=== PATIENT | female | born 1935 ===

== ENCOUNTER 2022-01-24 16:03 | Inpatient (IN) ==
[2022-01-24] MEDS ORDERED: Acetaminophen 325 MG TABLET PO PRN (17:09)
[2022-01-24] MEDS ORDERED: Ondansetron ODT 4 MG TAB.RAPDIS SL PRN (17:09)
[2022-01-24] MEDS ORDERED: QUEtiapine Fumarate 25 MG TABLET PO SCH (23:45)
[2022-01-25 08:45] LABS: Basophils % 0.6 %; Eosinophils # 0.2 K/mcL (0.0-0.6); Eosinophils % 3.3 %; Hematocrit 27.4 % (35.3-44.9); Immature Granulocytes % 2.6 % (0-4); Lymphocytes # 1.5 K/mcL (0.6-4.6); Lymphocytes % 20.6 %; Mean Corpuscular HGB Conc 32.8 g/dL (31.6-35.5); Mean Corpuscular Hemoglobin 28.7 pg (28.0-33.3); Mean Corpuscular Volume 87.3 fL (83.0-100.0); Mean Platelet Volume 9.1 fL (9.4-12.4); Monocytes # 0.9 K/mcL (0.0-1.3); Monocytes % 11.9 %; Neutrophils # 4.4 K/mcL (1.6-8.9); Platelet Count 346 K/mcL (140-400); Red Blood Count 3.14 M/mcL (3.82-4.97); Red Cell Distribution Width 14.6 % (11.5-14.5); White Blood Count 7.2 K/mcL (4.3-11.1)
[2022-01-25 09:00] LABS: BUN/Creatinine Ratio 33 (6-26); Blood Urea Nitrogen 14 mg/dL (8-23); Calcium 8.4 mg/dL (8.6-10.3); Carbon Dioxide 28 mEq/L (23-29); Chloride 99 mEq/L (98-107); Glucose 100 mg/dL (70-105); Osmolality,Calculated 275 (280-300); Potassium 4.3 mEq/L (3.5-5.1); Sodium 132 mEq/L (136-145); eGFR For African Americans > 60 (> 60); eGFR For Non-African Americans > 60 (> 60)
[2022-01-25] MEDS: Aspirin Enteric Coated 81 MG Tablet PO SCH ×2 (12:03→20:13)
[2022-01-25] MEDS: Metoprolol XL (24 HR) Succ 25 MG TAB.ER.24H PO SCH (12:03)
[2022-01-25] MEDS: Multivit/Ca/Min/Fe/FA 1 TAB TABLET PO SCH (12:03)
[2022-01-25] MEDS: Ascorbic Acid 500 MG TABLET PO SCH ×2 (12:04→17:11)
[2022-01-25] MEDS: Levothyroxine 25 MCG TABLET PO SCH (12:05)
[2022-01-25] MEDS: QUEtiapine Fumarate 25 MG TABLET PO SCH (20:13)
[2022-01-26] MEDS: Levothyroxine 25 MCG TABLET PO SCH (05:23)
[2022-01-26] MEDS: Ascorbic Acid 500 MG TABLET PO SCH ×2 (10:40→16:38)
[2022-01-26] MEDS: Aspirin Enteric Coated 81 MG Tablet PO SCH ×2 (10:40→21:04)
[2022-01-26] MEDS: Multivit/Ca/Min/Fe/FA 1 TAB TABLET PO SCH (10:41)
[2022-01-26] MEDS: Metoprolol XL (24 HR) Succ 25 MG TAB.ER.24H PO SCH (10:41)
[2022-01-26] MEDS: QUEtiapine Fumarate 25 MG TABLET PO SCH (21:04)
[2022-01-26] MEDS: *HR* HYDROcodone/Acet 5/325 mg TABLET PO PRN (21:23)
[2022-01-27] MEDS: Levothyroxine 25 MCG TABLET PO SCH (05:47)
[2022-01-27] MEDS: Ascorbic Acid 500 MG TABLET PO SCH ×2 (10:47→17:59)
[2022-01-27] MEDS: Multivit/Ca/Min/Fe/FA 1 TAB TABLET PO SCH (10:47)
[2022-01-27] MEDS: Metoprolol XL (24 HR) Succ 25 MG TAB.ER.24H PO SCH (10:47)
[2022-01-27] MEDS: Aspirin Enteric Coated 81 MG Tablet PO SCH ×2 (10:47→19:46)
[2022-01-27] MEDS: *HR* HYDROcodone/Acet 5/325 mg TABLET PO PRN (19:38)
[2022-01-27] MEDS: QUEtiapine Fumarate 25 MG TABLET PO SCH (19:47)
[2022-01-28] MEDS: Levothyroxine 25 MCG TABLET PO SCH (06:21)
[2022-01-28] MEDS: Metoprolol XL (24 HR) Succ 25 MG TAB.ER.24H PO SCH (09:38)
[2022-01-28] MEDS: Ascorbic Acid 500 MG TABLET PO SCH ×2 (09:38→16:24)
[2022-01-28] MEDS: Multivit/Ca/Min/Fe/FA 1 TAB TABLET PO SCH (09:38)
[2022-01-28] MEDS: Aspirin Enteric Coated 81 MG Tablet PO SCH ×2 (09:38→21:08)
[2022-01-28] MEDS: QUEtiapine Fumarate 25 MG TABLET PO SCH (21:08)
[2022-01-29] MEDS: Levothyroxine 25 MCG TABLET PO SCH (05:38)
[2022-01-29] MEDS: Ascorbic Acid 500 MG TABLET PO SCH ×2 (10:09→16:17)
[2022-01-29] MEDS: Aspirin Enteric Coated 81 MG Tablet PO SCH ×2 (10:09→20:33)
[2022-01-29] MEDS: Multivit/Ca/Min/Fe/FA 1 TAB TABLET PO SCH (10:09)
[2022-01-29] MEDS: Metoprolol XL (24 HR) Succ 25 MG TAB.ER.24H PO SCH (10:09)
[2022-01-29] MEDS: QUEtiapine Fumarate 25 MG TABLET PO SCH (20:33)
[2022-01-30] MEDS: Levothyroxine 25 MCG TABLET PO SCH (05:39)
[2022-01-30] MEDS: Multivit/Ca/Min/Fe/FA 1 TAB TABLET PO SCH (08:08)
[2022-01-30] MEDS: Metoprolol XL (24 HR) Succ 25 MG TAB.ER.24H PO SCH (08:08)
[2022-01-30] MEDS: Ascorbic Acid 500 MG TABLET PO SCH ×2 (08:08→15:14)
[2022-01-30] MEDS: Aspirin Enteric Coated 81 MG Tablet PO SCH ×2 (08:13→20:38)
[2022-01-30] MEDS: *HR* HYDROcodone/Acet 5/325 mg TABLET PO PRN (15:14)
[2022-01-30] MEDS: QUEtiapine Fumarate 25 MG TABLET PO SCH (20:39)
[2022-01-31] MEDS: *HR* HYDROcodone/Acet 5/325 mg TABLET PO PRN (01:24)
[2022-01-31] MEDS: Levothyroxine 25 MCG TABLET PO SCH (05:27)
[2022-01-31] MEDS: Ascorbic Acid 500 MG TABLET PO SCH ×2 (09:05→18:48)
[2022-01-31] MEDS: Aspirin Enteric Coated 81 MG Tablet PO SCH ×2 (09:05→21:10)
[2022-01-31] MEDS: Metoprolol XL (24 HR) Succ 25 MG TAB.ER.24H PO SCH (09:05)
[2022-01-31] MEDS: Multivit/Ca/Min/Fe/FA 1 TAB TABLET PO SCH (09:05)
[2022-01-31] MEDS: QUEtiapine Fumarate 25 MG TABLET PO SCH (21:11)
[2022-02-01] MEDS: *HR* HYDROcodone/Acet 5/325 mg TABLET PO PRN (03:23)
[2022-02-01] MEDS: Levothyroxine 25 MCG TABLET PO SCH (06:53)
[2022-02-01] MEDS: Metoprolol XL (24 HR) Succ 25 MG TAB.ER.24H PO SCH (08:56)
[2022-02-01] MEDS: Aspirin Enteric Coated 81 MG Tablet PO SCH ×2 (08:57→20:03)
[2022-02-01] MEDS: Ascorbic Acid 500 MG TABLET PO SCH ×2 (08:57→16:46)
[2022-02-01] MEDS: Multivit/Ca/Min/Fe/FA 1 TAB TABLET PO SCH (08:57)
[2022-02-01] MEDS: QUEtiapine Fumarate 25 MG TABLET PO SCH (20:04)
[2022-02-02] MEDS: Levothyroxine 25 MCG TABLET PO SCH (06:11)
[2022-02-02 07:30] LABS: Hematocrit 28.2 % (35.3-44.9); Hemoglobin 9.1 g/dL (11.5-15.4); Mean Corpuscular HGB Conc 32.3 g/dL (31.6-35.5); Mean Corpuscular Hemoglobin 28.8 pg (28.0-33.3); Mean Corpuscular Volume 89.2 fL (83.0-100.0); Mean Platelet Volume 8.7 fL (9.4-12.4); Platelet Count 310 K/mcL (140-400); Red Blood Count 3.16 M/mcL (3.82-4.97); Red Cell Distribution Width 14.2 % (11.5-14.5); White Blood Count 5.3 K/mcL (4.3-11.1)
[2022-02-02] MEDS: Aspirin Enteric Coated 81 MG Tablet PO SCH ×2 (08:57→21:10)
[2022-02-02] MEDS: Metoprolol XL (24 HR) Succ 25 MG TAB.ER.24H PO SCH (08:57)
[2022-02-02] MEDS: Multivit/Ca/Min/Fe/FA 1 TAB TABLET PO SCH (08:58)
[2022-02-02] MEDS: Ascorbic Acid 500 MG TABLET PO SCH ×2 (08:58→16:30)
[2022-02-02 11:39] LABS: BUN/Creatinine Ratio 13 (6-26); Blood Urea Nitrogen 5 mg/dL (8-23); Calcium 8.6 mg/dL (8.6-10.3); Carbon Dioxide 29 mEq/L (23-29); Chloride 101 mEq/L (98-107); Glucose 92 mg/dL (70-105); Osmolality,Calculated 279 (280-300); Potassium 3.6 mEq/L (3.5-5.1); Sodium 136 mEq/L (136-145); eGFR For African Americans > 60 (> 60); eGFR For Non-African Americans > 60 (> 60)
[2022-02-02 17:04] LABS: Basophils # 0.1 K/mcL (0.0-0.2); Basophils % 0.8 %; Eosinophils # 0.1 K/mcL (0.0-0.6); Eosinophils % 1.4 %; Hematocrit 32.4 % (35.3-44.9); Hemoglobin 10.2 g/dL (11.5-15.4); Immature Granulocytes % 0.5 % (0-4); Lymphocytes # 1.4 K/mcL (0.6-4.6); Lymphocytes % 20.8 %; Mean Corpuscular HGB Conc 31.5 g/dL (31.6-35.5); Mean Corpuscular Hemoglobin 27.9 pg (28.0-33.3); Mean Corpuscular Volume 88.8 fL (83.0-100.0); Mean Platelet Volume 8.7 fL (9.4-12.4); Monocytes # 0.6 K/mcL (0.0-1.3); Monocytes % 8.9 %; Neutrophils # 4.5 K/mcL (1.6-8.9); Platelet Count 349 K/mcL (140-400); Red Blood Count 3.65 M/mcL (3.82-4.97); Segmented Neutrophils % 67.6 %; White Blood Count 6.6 K/mcL (4.3-11.1)
[2022-02-02 17:24] LABS: BUN/Creatinine Ratio 14 (6-26); Blood Urea Nitrogen 6 mg/dL (8-23); Calcium 8.9 mg/dL (8.6-10.3); Carbon Dioxide 30 mEq/L (23-29); Chloride 98 mEq/L (98-107); Glucose 154 mg/dL (70-105); Osmolality,Calculated 279 (280-300); Potassium 3.5 mEq/L (3.5-5.1); Sodium 134 mEq/L (136-145); eGFR For African Americans > 60 (> 60); eGFR For Non-African Americans > 60 (> 60)
[2022-02-02] MEDS: Melatonin 3 MG TABLET PO PRN (21:10)
[2022-02-02] MEDS: QUEtiapine Fumarate 25 MG TABLET PO SCH (21:10)
[2022-02-02] MEDS: *HR* HYDROcodone/Acet 5/325 mg TABLET PO PRN (21:11)
[2022-02-03] MEDS: Levothyroxine 25 MCG TABLET PO SCH (05:18)
[2022-02-03] MEDS: Multivit/Ca/Min/Fe/FA 1 TAB TABLET PO SCH (09:57)
[2022-02-03] MEDS: Metoprolol XL (24 HR) Succ 25 MG TAB.ER.24H PO SCH (09:57)
[2022-02-03] MEDS: Ascorbic Acid 500 MG TABLET PO SCH ×2 (09:57→16:36)
[2022-02-03] MEDS: Aspirin Enteric Coated 81 MG Tablet PO SCH ×2 (09:57→21:11)
[2022-02-03] MEDS: Melatonin 3 MG TABLET PO PRN (21:11)
[2022-02-03] MEDS: *HR* HYDROcodone/Acet 5/325 mg TABLET PO PRN (21:11)
[2022-02-03] MEDS: QUEtiapine Fumarate 25 MG TABLET PO SCH (21:11)
[2022-02-04] MEDS: Levothyroxine 25 MCG TABLET PO SCH (05:43)
[2022-02-04] MEDS: Ascorbic Acid 500 MG TABLET PO SCH ×2 (08:03→15:40)
[2022-02-04] MEDS: Multivit/Ca/Min/Fe/FA 1 TAB TABLET PO SCH (08:03)
[2022-02-04] MEDS: Aspirin Enteric Coated 81 MG Tablet PO SCH ×2 (08:03→20:20)
[2022-02-04] MEDS: Metoprolol XL (24 HR) Succ 25 MG TAB.ER.24H PO SCH (08:03)
[2022-02-04] MEDS: Melatonin 3 MG TABLET PO PRN (20:20)
[2022-02-04] MEDS: *HR* HYDROcodone/Acet 5/325 mg TABLET PO PRN (20:20)
[2022-02-04] MEDS: QUEtiapine Fumarate 25 MG TABLET PO SCH (20:20)
[2022-02-05] MEDS: Levothyroxine 25 MCG TABLET PO SCH (05:10)
[2022-02-05] MEDS: Aspirin Enteric Coated 81 MG Tablet PO SCH ×2 (08:13→20:08)
[2022-02-05] MEDS: Metoprolol XL (24 HR) Succ 25 MG TAB.ER.24H PO SCH (08:13)
[2022-02-05] MEDS: Ascorbic Acid 500 MG TABLET PO SCH ×2 (08:14→15:50)
[2022-02-05] MEDS: Multivit/Ca/Min/Fe/FA 1 TAB TABLET PO SCH (08:14)
[2022-02-05] MEDS: QUEtiapine Fumarate 25 MG TABLET PO SCH (20:08)
[2022-02-06] MEDS: Levothyroxine 25 MCG TABLET PO SCH (05:34)
[2022-02-06] MEDS: Aspirin Enteric Coated 81 MG Tablet PO SCH ×2 (08:23→21:00)
[2022-02-06] MEDS: Multivit/Ca/Min/Fe/FA 1 TAB TABLET PO SCH (08:23)
[2022-02-06] MEDS: Metoprolol XL (24 HR) Succ 25 MG TAB.ER.24H PO SCH (08:23)
[2022-02-06] MEDS: Ascorbic Acid 500 MG TABLET PO SCH ×2 (08:23→15:54)
[2022-02-06 18:45] VITALS: RESP 16; O2SAT 93
[2022-02-06] MEDS: QUEtiapine Fumarate 25 MG TABLET PO SCH (21:01)
[2022-02-07] MEDS: Levothyroxine 25 MCG TABLET PO SCH (06:10)
[2022-02-07 07:27] VITALS: BP 165/90; PULSE 76; TEMP 98.7
[2022-02-07] MEDS: Metoprolol XL (24 HR) Succ 25 MG TAB.ER.24H PO SCH (08:02)
[2022-02-07] MEDS: Aspirin Enteric Coated 81 MG Tablet PO SCH (08:03)
[2022-02-07] MEDS: Ascorbic Acid 500 MG TABLET PO SCH (08:03)
[2022-02-07] MEDS: Multivit/Ca/Min/Fe/FA 1 TAB TABLET PO SCH (08:04)
== END 2022-02-07 13:25 | disposition home health service (06) | DRG 559 ==
LOC: INPPIK 21:18
PROVIDERS: ADMIT Family Medicine; ATTEND Family Medicine